=== PATIENT | male | born 1960 | race Caucasian/White ===

== ENCOUNTER → 2018-06-26 | Outpatient (REF) ==
--- NOTE | 2018-06-27 02:22 | REP ---
Clinical: Degenerative back pain. Technique: AP, lateral, coned-down views of the lumbosacral spine. Findings: Alignment and lordosis maintained. No acute fracture / compression injury or subluxation. Moderate/early advanced multilevel degenerative changes include osteophytosis, endplate sclerosis, disc space narrowing and hypertrophic facet changes. Impression: Moderate/early advanced multilevel degenerative spondylosis. Electronically Signed by Brad Saucedo MD 06/27/2018 02:14 A
== END ==
LOC: M SMT 13:11
PROVIDERS: ATTEND Internal Medicine
DX: M47.897 Other spondylosis, lumbosacral region (principal)